=== PATIENT | female | born 1995 | race Caucasian/White ===

== ENCOUNTER 2017-01-25 12:36 | Emergency (ER) | payer SELFPAY ==
[2017-01-25 12:54] VITALS: BP 140/78
--- NOTE | 2017-01-25 14:22 | UC ---
Throat Pain/Nasal Tobias HPI - HPI Summary HPI Summary: Patient presents with complaints of ear pain, sinus congestion, and sore throat. She states that she has some decreased hearing of her left ear. She states she has tubes in her ears, and did not follow up with ENT as she was suppose to. She denies canal drainage, fever, chills, chest pain, dyspnea, sputum production, abdominal pain, nausea, vomiting or diarrhea. - History of Current Complaint Chief Complaint: UCRespiratory Stated Complaint: SORE THROAT/ EAR PAIN Time Seen by Provider: 01/25/17 14:05 Hx Obtained From: Patient Hx Last Menstrual Period: 01/15/17 Onset/Duration: Gradual Onset, Lasting Days Severity: Mild Cough: Nonproductive Associated Signs & Symptoms: Positive: Hoarseness, Nasal Discharge - Epiglottits Risk Factors Epiglottis Risk Factors: Negative - Allergies/Home Medications Allergies/Adverse Reactions: Allergies Allergy/AdvReac Type Severity Reaction Status Date / Time Acetaminophen [From Vicodin] Allergy Nausea Verified 01/25/17 12:55 Azithromycin [From Zithromax] Allergy Hives Verified 01/25/17 12:55 Hydrocodone [From Vicodin] Allergy Nausea Verified 01/25/17 12:55 Latex Allergy Itching Verified 01/25/17 12:55 Home Medications: Home Medications Acetaminophen [Tylenol] 325 mg PO Q4H PRN 01/25/17 [History Confirmed 01/25/17] Ibuprofen [Advil] 200 mg PO Q6H PRN 01/25/17 [History Confirmed 01/25/17] PMH/Surg Hx/FS Hx/Imm Hx Previously Healthy: Yes - Surgical History Surgical History: Yes Surgery Procedure, Year, and Place: tubes in ears, tonsillectomy - Family History Known Family History: Positive: Hypertension - Social History Occupation: Employed Full-time Lives: Alone Alcohol Use: None Substance Use Type: Marijuana Substance Use Comment - Amount & Last Used: daily Smoking Status (MU): Light Every Day Tobacco Smoker Amount Used/How Often: 2 pks a week Have You Smoked in the Last Year: Yes - Immunization History Most Recent Influenza Vaccination: none Review of Systems Constitutional: Negative Skin: Negative Eyes: Negative ENT: Sore Throat, Ear Ache, Nasal Discharge Respiratory: Negative Cardiovascular: Negative Gastrointestinal: Negative Genitourinary: Negative Motor: Negative Neurovascular: Negative Musculoskeletal: Negative Neurological: Negative Psychological: Negative All Other Systems Reviewed And Are Negative: Yes Physical Exam Triage Information Reviewed: Yes Appearance: Well-Appearing Vital Signs: Initial Vital Signs Temp 97.5 F 01/25/17 12:49 Pulse 105 01/25/17 12:49 Resp 16 01/25/17 12:49 BP 140/78 01/25/17 12:49 Pulse Ox 100 01/25/17 12:49 Vital Signs Reviewed: Yes Eye Exam: Normal ENT: Positive: Pharyngeal erythema, Nasal congestion, Nasal drainage, TM dull, TM red, Hoarse voice, Sinus tenderness Neck exam: Normal Neck: Positive: 1 Respiratory Exam: Normal Cardiovascular Exam: Normal Abdominal Exam: Normal Musculoskeletal Exam: Normal Neurological Exam: Normal Psychological Exam: Normal Skin Exam: Normal Throat Pain/Nasal Course/Dx - Course Course Of Treatment: Patient presents with several day onset complaints of sinus pain, pressure, ear pain, sore throat and chest congestion. 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 She reports ear infections as a child and as a results reports she has lost some hearing in her left ear. She states her symtpoms have persisited. She wa RX augmentin 500 mg by mouth twice daily, and taken out of work for two days. She was discharged home in stable condition. I toled her to follow up if her symtpoms worsen or persist more than three days. - Differential Dx/Diagnosis Differential Diagnosis/HQI/PQRI: Pharyngitis Provider Diagnoses: pharyngitis Discharge - Discharge Plan Condition: Stable Disposition: HOME Prescriptions: Amoxicillin/Clavulanate TAB* [Augmentin TAB 500 mg*] 500 mg PO BID #20 tab Patient Education Materials: Pharyngitis (ED) Forms: *Work Release Referrals: Staci Millard NP [Primary Care Provider] -
== END 2017-01-25 14:35 | disposition home or self-care (01) ==
LOC: UCEAST 12:36
DX: Z02.9 Encounter for administrative examinations, unspecified (principal); F12.90 Cannabis use, unspecified, uncomplicated; Z72.0 Tobacco use
CPT/HCPCS: 99202; G0463

== ENCOUNTER 2018-10-28 09:22 | Emergency (ER) | payer SELFPAY ==
[2018-10-28] MEDS ORDERED: Meclizine TAB* 12.5 MG PO ONE (09:46)
--- NOTE | 2018-10-28 09:54 | ED ---
Dizziness - HPI Summary HPI Summary: Patient is a 23 y/o F presenting to [facility] with complaints of dizziness and N/V. Patient awoke this morning, 10/28/18 with dizziness, which she characterizes as room-spinning. She went outside to smoke a cigarette and subsequently began to vomit. She denies chest pain and SOB. Patient has tubes in her ears but denies ear pain, hearing changes, and drainage from ears. Some SHELDON is noted, but blurred vision is denied. FMHx of vertigo. Patient notes that she had an irregular menstrual cycle last month. Nothing is noted to aggravate/alleviate Sx. Home medications and allergies are reviewed. - History Of Current Complaint Chief Complaint: EDDizziness Stated Complaint: POSS PREG/VOMITING/DIZZY PER PT Time Seen by Provider: 10/28/18 09:39 Hx Obtained From: Patient Timing: Hours Character: Room Spinning, Dizzy Aggravating Factor(s): Nothing Alleviating Factor(s): Nothing Associated Signs And Symptoms: Positive: Nausea, Vomiting, Other: - positive - SHELDON; negative - blurred vision, ear pain, hearing changes, and drainage from ears. Negative: Chest Pain, SOB - Allergies/Home Medications Allergies/Adverse Reactions: Allergies Allergy/AdvReac Type Severity Reaction Status Date / Time acetaminophen [From Vicodin] Allergy Nausea Verified 05/27/18 11:53 azithromycin [From Zithromax] Allergy Hives Verified 05/27/18 11:53 hydrocodone [From Vicodin] Allergy Nausea Verified 05/27/18 11:53 latex Allergy Itching Verified 05/27/18 11:53 PMH/Surg Hx/FS Hx/Imm Hx Sensory History: Denies: Hx Legally Blind, Hx Deafness Opthamlomology History: Denies: Hx Legally Blind EENT History: Denies: Hx Deafness - Surgical History Surgery Procedure, Year, and Place: tubes in ears, tonsillectomy Infectious Disease History: No Infectious Disease History: Denies: Traveled Outside the [place] in Last 30 Days - Family History Known Family History: Positive: Hypertension, Other - vertigo - Social History Alcohol Use: None Substance Use Type: Reports: Marijuana Substance Use Comment - Amount & Last Used: daily Smoking Status (MU): Light Every Day Tobacco Smoker Type: Cigars Amount Used/How Often: 2 pks a week Have You Smoked in the Last Year: Yes Review of Systems Negative: Blurred Vision ENT: Other - denies ear pain, hearing changes, and drainage from ears Negative: Chest Pain Negative: Shortness Of Breath Positive: Vomiting, Nausea Neurological: Other - positive - dizziness Positive: Headache All Other Systems Reviewed And Are Negative: Yes Physical Exam - Summary Physical Exam Summary: VITAL SIGNS: Reviewed. GENERAL: Patient is a well-developed and nourished female who is lying comfortable in the stretcher. Patient is not in any acute respiratory distress. HEAD AND FACE: No signs of trauma. No ecchymosis, hematomas or skull depressions. No sinus tenderness. EYES: PERRLA, EOMI x 2, No injected conjunctiva, no nystagmus. EARS: Hearing grossly intact. Ear canals and tympanic membranes are within normal limits. MOUTH: Oropharynx within normal limits. NECK: Supple, trachea is midline, no adenopathy, no JVD, no carotid bruit, no c- spine tenderness, neck with full ROM. CHEST: Symmetric, no tenderness at palpation. LUNGS: Clear to auscultation bilaterally. No wheezing or crackles. CVS: Regular rate and rhythm, S1 and S2 present, no murmurs or gallops appreciated. ABDOMEN: Soft, non-tender. No signs of distention. No rebound, no guarding, and no masses palpated. Bowel sounds are normal. EXTREMITIES: FROM in all major joints, no edema, no cyanosis or clubbing. NEURO: Alert and oriented x 3. No acute neurological deficits. Speech is normal and follows commands. SKIN: Dry and warm. Triage Information Reviewed: Yes Vital Signs On Initial Exam: Initial Vitals Temp Pulse Resp BP Pulse Ox 98.5 F 86 18 151/79 100 10/28/18 09:23 10/28/18 09:23 10/28/18 09:23 10/28/18 09:23 10/28/18 09:23 Vital Signs Reviewed: Yes Diagnostics - Vital Signs Vital Signs Temp Pulse Resp BP Pulse Ox 10/28/18 09:23 98.5 F 86 18 151/79 100 - Laboratory Result Diagrams: 10/28/18 09:57 10/28/18 09:57 Lab Statement: Any lab studies that have been ordered have been reviewed, and results considered in the medical decision making process. - EKG 0952 Cardiac Rate: Other Rate - arrhythmia with rate of 74 BPM Summary of EKG Findings: EKG showed sinus arrhythmia with rate of 74 BPM, normal axis, no ST elevations. Re-Evaluation - Re-Evaluation First Eval Re-Evaluation Time: 09:45 Comment: Nurse Sommer states that the patient had told her that she had also smoked marijuana this morning. She additionally notes that the patient had told her that she was trying to conceive with her partner. Patient stated that she is four days late. Second Eval Re-Evaluation Time: 11:25 Comment: She reports that she improved significantly after these medications. At this point the patient is asymptomatic. The patient is feeling much better. Therefore, she will be discharged home with follow-up with PCP. The patient is hemodynamically stable alert and oriented 3. Neurological exam before discharge is found to be within normal limits. Dizzy Course/Dx - Course Assessment/Plan: Patient is a 23 y/o F presenting to [facility] with complaints of dizziness and N/V. Patient awoke this morning, 10/28/18 with dizziness, which she characterizes as room-spinning. She went outside to smoke a cigarette and subsequently began to vomit. She denies chest pain and SOB. Patient has tubes in her ears but denies ear pain, hearing changes, and drainage from ears. Some SHELDON is noted, but blurred vision is denied. FMHx of vertigo. Patient notes that she had an irregular menstrual cycle last month. Blood test results without any significant abnormality except for WBCs of 11.5, AST of 10 and the urinalysis is negative for UTI. In the ED course the patient was given IV fluids and also meclizine. She reports that she improved significantly after these medications. At this point the patient is asymptomatic. The patient is feeling much better. Therefore, she will be discharged home with follow-up with PCP. The patient is hemodynamically stable alert and oriented 3. Neurological exam before discharge is found to be within normal limits. - Diagnoses Provider Diagnoses: Vertigo Discharge - Sign-Out/Discharge Documenting (check all that apply): Patient Departure - discharge Patient Received Moderate/Deep Sedation with Procedure: No - Discharge Plan Condition: Stable Disposition: HOME Prescriptions: Meclizine TAB* [Antivert 12.5 TAB*] 25 mg PO TID PRN #20 tab PRN Reason: Vertigo Patient Education Materials: Vertigo (ED) Forms: *Work Release Referrals: Staci Millard NP [Primary Care Provider] - 3 Days Additional Instructions: PLEASE RETURN TO ED FOR ANY NEW OR WORSENING SYMTPOMS. PLEASE FOLLOW-UP WITH YOUR PRIMARY CARE PHYSICIAN WITHIN THREE DAYS. - Billing Disposition and Condition Condition: STABLE Disposition: Home - Attestation Statements Document Initiated by Casimiroibe: Yes Documenting Scribe: GEORGE MARTINEZ Provider For Whom Scribe is Documenting (Include Credential): CARMINA SETH MD Scribe Attestation: I, GEORGE MARTINEZ, scribed for CARMINA SETH MD on 10/29/18 at 0723. Scribe Documentation Reviewed: Yes Provider Attestation: The documentation as recorded by the GEORGE kahn accurately reflects the service I personally performed and the decisions made by me, CARMINA STEH MD Status of Scribe Document: Viewed
[2018-10-28 10:03] LABS: ABS Basophils 0.1 10^3/ul (0-0.2); ABS Eosinophils 0.3 10^3/ul (0-0.6); ABS Lymphocytes 4.1 10^3/ul (1.0-4.8); ABS Monocytes 0.6 10^3/ul (0-0.8); ABS Neutrophils 6.4 10^3/ul (1.5-7.7); Eosinophil % 2.5 %; Hematocrit 41 % (35-47); Hemoglobin 13.7 g/dL (12.0-16.0); Lymphocyte % 35.6 %; Mean Corpuscular HGB Conc 34 g/dL (31-36); Mean Corpuscular Hemoglobin 32 pg (27-31); Mean Corpuscular Volume 95 fL (80-97); Mean Platelet Volume 7.4 fL (7.4-10.4); Platelet Count 253 10^3/uL (150-450); Red Blood Count 4.31 10^6 /uL (3.70-4.87); Red Cell Distribution Width 14 % (10-15); White Blood Count 11.5 10^3/uL (3.5-10.8)
[2018-10-28 10:24] LABS: Albumin/Globulin Ratio 1.4 (1-3); BUN/Creatinine Ratio 13.1 (8-20); Calcium 9.2 mg/dL (8.6-10.3); EGFR African American 149.8 (>60); EGFR Non-African American 123.8 (>60); Globulin 2.9 g/dL (2-4); Potassium 3.9 mmol/L (3.5-5.0); Total Bilirubin 0.3 mg/dL (0.2-1.0); Total Protein 6.9 g/dL (6.4-8.9)
[2018-10-28 10:26] LABS: HCG Pregnancy 1.91 mIU/mL
[2018-10-28 10:30] LABS: Urine Appearance Clear; Urine Bilirubin Negative (Negative); Urine Blood Negative (Negative); Urine Color Yellow; Urine Glucose Negative (Negative); Urine Ketones Negative (Negative); Urine Nitrite Negative (Negative); Urine Protein Negative (Negative); Urine Specific Gravity 1.009 (1.010-1.030); Urine Urobilinogen Negative (Negative)
[2018-10-28 10:41] LABS: TSH (Thyroid Stimulating Horm) 0.75 mcIU/mL (0.34-5.60)
[2018-10-28 12:01] VITALS: BP 103/62
== END 2018-10-28 12:01 | disposition home or self-care (01) ==
LOC: ED 09:22
DX: R42 Dizziness and giddiness (principal); F17.210 Nicotine dependence, cigarettes, uncomplicated; Z88.5 Allergy status to narcotic agent; Z88.6 Allergy status to analgesic agent; Z91.040 Latex allergy status
CPT/HCPCS: 36415; 80053; 81003; 83605; 83735; 84443; 84702; 85025; 93005; 99283; A9270-GY